=== PATIENT | female | born 1990 | race African-American/Black ===

== ENCOUNTER 2016-08-10 05:26 | Emergency (ER) | payer MEDICAID, OTHER ==
[~2016-08-10] VITALS: Ht 152.4 cm; Wt 97.9 kg
[2016-08-10 05:34] VITALS: BP 112/73; PULSE 87; RESP 18; TEMP 98; O2SAT 100
[2016-08-10 05:48] VITALS: BP 114/75; PULSE 85; RESP 20; TEMP 98.7
[2016-08-10] MEDS ORDERED: KETOROLAC TROMETHAMINE 60 MG/2 ML (IM) VIAL IM ONE (06:00)
[2016-08-10] MEDS ORDERED: ORPHENADRINE INJ 60 MG/2 ML AMP IM ONE (06:00)
--- NOTE | 2016-08-10 06:10 | PD ---
HPI Chief Complaint: Back/ Neck Pain or Injury Time Seen by Provider: 05:46 Travel History International Travel<30 days: No Contact w/Intl Traveler<30days: No Traveled to known affect area: No History of Present Illness HPI 25-year-old female presents to the emergency department for complaint of right buttock pain. Patient states pain starts from the low back/buttock and that intermittently causes a spasm or shocklike discomfort to the right buttock region. Symptoms are primarily midline. Symptoms are intermittent and seconds induration. Patient denies any known injury or fall. Patient is not sexually active 2 and half years and denies . Patient is currently menstruating. No complaint of pelvic pain or pelvic cramping. No dysuria frequency urgency but does note that buttock pain worsens with urination. No report of hematuria. No kidney stone history. Patient denies fever or chills. No hematemesis no coffee-ground emesis no melena hematochezia. Patient denies any recent injury or fall. No lower extremity numbness tingling or weakness no report of saddle anesthesia or bladder or bowel dysfunction. Patient reports she is unable to find position of comfort for prefers to stand as opposed to sitting. Patient has taken no medications to address pain. Patient reports she has had episodes like this before in the past but typically shorter in duration. PFSH Past Medical History Narrative Medical Back/buttock pain, ; no tobacco use; nursing notes reviewed Diminished Hearing: No Immunizations Current: No ?: Not Social History Alcohol Use: No Tobacco Use: No Substance Use: No Allergies-Medications (Allergen,Severity, Reaction): Coded Allergies: No Known Allergies (Verified , 08/10/16) Reported Meds & Prescriptions Reported Meds & Active Scripts Active No Active Prescriptions or Reported Medications Review of Systems Except as stated in HPI: all other systems reviewed are Neg General / Constitutional: No: Fever HENT: No: Congestion Cardiovascular: No: Chest Pain or Discomfort Respiratory: No: Shortness of Breath Gastrointestinal: No: Abdominal Pain Genitourinary: No: Pelvic Pain Musculoskeletal: Positive: Pain (low back and buttock pain), No: Limited ROM Skin: No Rash Neurologic: No: Focal Abnormalities, Coordination Problem, Paresthesia, Incontinence Psychiatric: No: Anxiety Hematologic/Lymphatic: No: Lymph Node Enlargement Physical Exam Narrative GENERAL: Well-developed well-nourished female in no acute distress no respiratory distress. SKIN: Warm and dry. HEAD: Normocephalic. EYES: No scleral icterus. No injection or drainage. NECK: Supple, trachea midline. No JVD or lymphadenopathy. CARDIOVASCULAR: Regular rate and rhythm without murmurs, gallops, or rubs. RESPIRATORY: Breath sounds equal bilaterally. No accessory muscle use. GASTROINTESTINAL: Abdomen soft, non-tender, nondistended. MUSCULOSKELETAL: No cyanosis, or edema. BACK: Nontender without obvious deformity. Negative straight leg raising. No CVA tenderness. Motor strength 5 over 5 bilateral lower extremities. DTRs 2+ and equal bilaterally. Sensory exam intact. Data Data Last Documented VS Vital Signs Date Time Temp Pulse Resp B/P Pulse Ox O2 Delivery O2 Flow Rate FiO2 08/10/16 05:57 18 08/10/16 05:48 98.7 85 114/75 08/10/16 05:34 100 Orders Ketorolac Inj (Toradol Inj) (08/10/16 06:00) Orphenadrine Inj (Norflex Inj) (08/10/16 06:00) Urinalysis - C+S If Indicated (08/10/16 05:46) Ed Urine Pregnancytest Poc (08/10/16 05:46) MDM Medical Decision Making Medical Screen Exam Complete: Yes Emergency Medical Condition: Yes Medical Record Reviewed: Yes Interpretation(s) poc hcg: negative ua: lg blood c/w menses Differential Diagnosis Low back pain, sciatica, radiculopathy, piriformis syndrome, sacroiliitis, UTI, Narrative Course Patient given injection of Norflex 60 mg IM and Toradol 60 mg IM At 6:50 AM patient is clinically improved and stable for outpatient management; will be provided prescriptions for Robaxin and ibuprofen; patient is encouraged to apply moist heat intermittently for next 12-24 hours as needed no work times one day and to follow-up with primary care provider. Patient is encouraged to return to the emergency room should she have any change in condition or any concerns. Diagnosis Primary Impression: Low back pain potentially associated with radiculopathy Additional Impression: Right buttock pain Referrals: Primary Care Physician 2 days Patient Instructions: General Instructions Departure Forms: Tests/Procedures, Work Release Special Instructions: no work x 1 day Additional Instructions: Take medications as prescribed as needed Apply moist heat to affected area intermittently Follow-up with primary care provider Return to the emergency department for any concerns or change in condition Med/Other Pt SpecificInfo: Prescription(s) given Scripts Ibuprofen 800 Mg Npl256 Mg PO Q8H PRN (PAIN GREATER THAN 5) #15 TAB Ref 0 Prov:Shayna Branch MD 08/10/16 Methocarbamol (Robaxin)750 Mg Uyx569 Mg PO Q6HR #12 TAB Ref 0 Prov:Shayna Branch MD 08/10/16 Disposition: 01 DISCHARGE HOME Condition: Stable Shayna Branch MD Aug 10, 2016 06:10
[2016-08-10 06:39] LABS: BLOOD, URINE LARGE (NEG); GLUCOSE,URINE NEG (NEG); KETONE, URINE NEG (NEG); NITRITE,URINE NEG (NEG)
[2016-08-10 06:44] LABS: METHOD OF COLLECTION CLEAN CATCH; URINE COLOR YELLOW (YELLW/STRAW)
[2016-08-10 06:48] LABS: COMMENT (UR) CULT NOT INDICATED; COMMENT2 (UR) MUCOUS PRESENT; CULTURE IF INDICATED CULT NOT INDICATED; SQUAMOUS EPITHELIAL CELL URINE 0-5 /hpf (0-5)
[2016-08-10] MEDS ORDERED: IBUP800T23 PO (06:49)
[2016-08-10] MEDS ORDERED: ROBA750T PO (06:49)
[2016-08-10 06:55] VITALS: BP 103/62
== END 2016-08-10 07:01 | disposition home or self-care (01) ==
LOC: PHED 05:26
DX: M54.5 Low back pain (principal)
CPT/HCPCS: 81001; 84703; 96372; 99283; J1885; J2360

== ENCOUNTER 2017-03-28 18:23 | Emergency (ER) | payer MEDICAID ==
[~2017-03-28] VITALS: Ht 175.3 cm; Wt 105.9 kg
[~2017-03-28 18:23] MED LIST: IBUP1TAB7 PO; ROBA750T PO
[2017-03-28 18:25] VITALS: BP 146/72; PULSE 76; RESP 15; TEMP 98.8; O2SAT 98
--- NOTE | 2017-03-28 18:35 | PD ---
HPI Chief Complaint: Injury Time Seen by Provider: 18:27 Travel History International Travel<30 days: No Contact w/Intl Traveler<30days: No Traveled to known affect area: No History of Present Illness HPI Examined in the presence of a female nurse. 26-year-old female presents for evaluation of puncture wound to the plantar aspect of the right foot. She stepped on a nail yesterday. She has pain with walking, aching. Denies drainage. Last tetanus vaccination unknown. No other complaints. PFSH Past Medical History Diminished Hearing: No Immunizations Current: No ?: Not Social History Alcohol Use: No Tobacco Use: No Substance Use: No Allergies-Medications (Allergen,Severity, Reaction): Coded Allergies: No Known Allergies (Verified Adverse Reaction, Unknown, 03/28/17) Reported Meds & Prescriptions Reported Meds & Active Scripts Active Ibuprofen 800 Mg Tab 800 Mg PO Q8H PRN Robaxin (Methocarbamol) 750 Mg Tab 750 Mg PO Q6HR Review of Systems Musculoskeletal: Positive: Other (positive for puncture wound) Skin: Positive Other (positive for puncture wound, pain) Physical Exam Narrative GENERAL: Well-nourished female in no acute distress SKIN: Warm and dry. Puncture wound plantar aspect right foot. No bleeding, no bruising or soft tissue swelling CARDIOVASCULAR: Regular rate and rhythm. No murmur appreciated. RESPIRATORY: No accessory muscle use. Clear to auscultation. Breath sounds equal bilaterally. MUSCULOSKELETAL: Skin as noted above. Tender to palpation at the level puncture wound. NEUROLOGICAL: Awake and alert. No obvious cranial nerve deficits. Motor grossly within normal limits. Normal speech. Data Data Last Documented VS Vital Signs Date Time Temp Pulse Resp B/P (MAP) Pulse Ox O2 Delivery O2 Flow Rate FiO2 03/28/17 18:25 98.8 76 15 146/72 (96) 98 Orders Orders Foot, Limited (2vws) (03/28/17 ) Tetanus/Diphtheria Tox Adult (Tetanus/Di (03/28/17 18:45) Wound Care (03/28/17 18:33) Ed Discharge Order (03/28/17 19:07) MDM Medical Decision Making Medical Screen Exam Complete: Yes Emergency Medical Condition: Yes Medical Record Reviewed: Yes Differential Diagnosis Puncture wound, open fracture, foreign body Narrative Course X-ray imaging reveals no acute abnormalities. Tetanus status updated. Local wound care provided. Stable for discharge. Diagnosis Primary Impression: Puncture wound of right foot Qualified Codes: S91.331A - Puncture wound without foreign body, right foot, initial encounter Additional Instructions: Wash the wound daily with soap and water and apply antibiotic cream and clean bandages. Tylenol or Motrin for pain. Return for any emergent medical conditions. Med/Other Pt SpecificInfo: Wound Care Disposition: DISCHARGE HOME Condition: Stable Jc Morales Mar 28, 2017 18:35
[2017-03-28] MEDS ORDERED: TETANUS/DIPHTHERIA TOXOID ADULT 0.5 ML VIAL IM ONE (18:45)
--- NOTE | 2017-03-28 19:06 | RADRPT ---
EXAM DATE/TIME: 03/28/2017 18:40 [facility] COMPARISON: No previous studies available for comparison. INDICATIONS : Right foot pain. MEDICAL HISTORY : None. SURGICAL HISTORY : None. ENCOUNTER: Initial ACUITY: 2 days PAIN SCORE: 6/10 LOCATION: Right foot FINDINGS: Two view examination of the right foot demonstrates no soft tissue swelling, dislocation, or fracture . The calcaneus is intact. Bony mineralization is normal. CONCLUSION: Unremarkable limited examination of the right foot. Dandy Vang MD on March 28, 2017 at 19:04 Board Certified Radiologist. This report was verified electronically.
== END 2017-03-28 19:27 | disposition home or self-care (01) ==
LOC: PHEFT 18:23
DX: S91.331A Puncture wound without foreign body, right foot, initial encounter (principal); W45.0XXA Nail entering through skin, initial encounter; Z23 Encounter for immunization
CPT/HCPCS: 73620; 90471; 90714